=== PATIENT | female | born 1965 | race Caucasian/White ===

== ENCOUNTER 2025-03-12 06:54 | Outpatient (CLI) | payer BC, SELFPAY ==
--- NOTE | ~2025-03-12 | XR_ITS ---
XR hip BI wo pelvis 03/12/2025 07:32 Indication: Bilateral hip pain Procedure: 2 views each hip Comparison: No prior studies for comparison. Findings: There is anatomic alignment. No fracture, subluxation or dislocation. No soft tissue abnormality. No foreign bodies. Impression: 1: No significant bone or joint abnormality. Reviewed, dictated and finalized at location O. INSPECTOR Impression: 1: No significant bone or joint abnormality.
--- NOTE | ~2025-03-12 | XR_ITS ---
XR cervical spine min 6V 03/12/2025 07:33 Indication: Cervicalgia Procedure: 7 view cervical spine including flexion/extension views Comparison: No prior studies for comparison. Findings: There is reversal of cervical lordosis. Vertebral body heights are maintained. There is disc narrowing at C4-5, C5-6 and C6-7. No prevertebral soft tissue swelling. There is multilevel uncinate and facet hypertrophy. Lung apices are normal. Odontoid process is normal. Impression: 1: Severe cervical spondylosis. Reviewed, dictated and finalized at location O. [employer] DE[employer]Y CLERK Impression: 1: Severe cervical spondylosis.
--- NOTE | ~2025-03-12 | XR_ITS ---
XR lumbar spine 6V w bending Indication: Lbp Comparison: None Findings: Levoconvex scoliosis. Moderate loss of vertebral height throughout. No acute fracture or subluxation, no subluxation with flexion-extension. Severe loss of disc height throughout. Soft tissues unremarkable Impression: No acute abnormality. Reviewed, dictated and finalized at location P. ANTISUBMARINE OFFICER Impression: No acute abnormality.
== END 2025-03-12 06:55 | disposition home or self-care (01) ==
DX: M54.50 Low back pain, unspecified (principal); M47.892 Other spondylosis, cervical region
CPT/HCPCS: 72052; 72114; 73521